=== PATIENT | female | born 1995 | race African-American/Black ===

== ENCOUNTER 2021-11-23 03:05 | Observation (INO) | payer MEDICAID, OTHER ==
[~2021-11-23] VITALS: Ht 167.6 cm; Wt 52.6 kg
[2021-11-23] MEDS ORDERED: PRENATAL VITAMINS (03:46)
[2021-11-23] MEDS ORDERED: INSULIN (03:46)
[2021-11-23] MEDS ORDERED: ONDANSETRON HCL 4MG/2ML INJ IV PRN (06:30)
[2021-11-23] MEDS ORDERED: ACETAMINOPHEN 325MG TABLET PO PRN (06:30)
[2021-11-23] MEDS ORDERED: BLOOD SUGAR DIAGNOSTIC STRIP TEST ONE (06:30)
[2021-11-23 06:59] LABS: CLARITY URINE CLEAR (CLEAR); COLOR URINE YELLOW (YELLOW); KETONES URINE 2+ (NEGATIVE); LEUKOCYTE ESTERASE URINE NEGATIVE (NEGATIVE); NITRITE URINE NEGATIVE (NEGATIVE); OCCULT BLOOD URINE NEGATIVE (NEGATIVE); PH URINE 6.5 (4.5-8.0); PROTEIN URINE NEGATIVE (NEGATIVE); UROBILINOGEN URINE 0.2 E.U./dL (0.2-1.0)
== END 2021-11-23 07:30 | disposition home or self-care (01) ==
LOC: 8 EST LDRP 03:05
PROVIDERS: ADMIT Obstetrics & Gynecology; ATTEND Obstetrics & Gynecology
DX: O60.02 Preterm labor without delivery, second trimester (principal); O26.892 Other specified pregnancy related conditions, second trimester; R10.9 Unspecified abdominal pain; O62.9 Abnormality of forces of labor, unspecified; O24.112 Pre-existing type 2 diabetes mellitus, in pregnancy, second trimester; E11.9 Type 2 diabetes mellitus without complications; Z79.4 Long term (current) use of insulin; Z3A.26 26 weeks gestation of pregnancy; Z98.891 History of uterine scar from previous surgery
CPT/HCPCS: 59025; 76805; 81003; 82731; 82962; G0378; 99281

== ENCOUNTER 2022-01-16 12:10 | Observation (INO) | payer OTHER ==
[~2022-01-16] VITALS: Ht 162.6 cm; Wt 56.7 kg
[2022-01-16] MEDS ORDERED: SODIUM CHLORIDE 0.9% 1,000 ML IV SCH (14:15)
[2022-01-16] MEDS ORDERED: TERBUTALINE SULFATE 1MG/ML VIAL SUBCUT PRN (14:19)
== END 2022-01-16 13:10 | disposition home or self-care (01) ==
LOC: 8 EST LDRP 12:10
PROVIDERS: ADMIT Specialist; ATTEND Specialist
DX: O62.9 Abnormality of forces of labor, unspecified (principal); O26.893 Other specified pregnancy related conditions, third trimester; N89.8 Other specified noninflammatory disorders of vagina; Z3A.34 34 weeks gestation of pregnancy; Z98.891 History of uterine scar from previous surgery
CPT/HCPCS: 59025; 99281; G0378; J7030

== ENCOUNTER 2023-09-02 09:17 | Emergency (ER) | payer MEDICAID ==
[~2023-09-02] VITALS: Ht 160 cm; Wt 58.0 kg
[2023-09-02 09:32] VITALS: BP 124/56; PULSE 80; RESP 18; TEMP 98.2; O2SAT 100
[2023-09-02 11:40] LABS: BASOPHILS % 0.6 % (0.0-2.0); EOSINOPHILS % 0.6 % (0.0-5.0); HEMOGLOBIN. 13.4 g/dL (12.0-16.0); LYMPHOCYTES % 25.8 % (20.0-50.0); MEAN CORPUSCULAR HEMOGLOBIN 29.5 pg (28.0-32.0); MEAN CORPUSCULAR HGB CONC 33.4 g/dL (31.0-37.0); MEAN CORPUSCULAR VOLUME 88.4 fL (81.0-99.0); MEAN PLATELET VOLUME 7.6 fl (7.4-10.4); MONOCYTES % 8.8 % (2.0-8.0); NEUTROPHILS % 64.2 % (40.0-76.0); PLATELET 285 x1000/uL (130-400); RED BLOOD CELL COUNT 4.53 mill/uL (4.2-5.4); WHITE BLOOD COUNT 6.5 x1000/uL (4.5-11.0)
[2023-09-02 11:45] LABS: CHLORIDE 102 mEq/L (98-107); POTASSIUM 4.1 mEq/L (3.5-5.1); SODIUM 134 mEq/L (136-145)
[2023-09-02 11:46] LABS: CALCIUM 9.4 mg/dL (8.7-10.4); CARBON DIOXIDE 25 mEq/L (21-32)
[2023-09-02 11:51] LABS: UREA NITROGEN BLOOD 8 mg/dL (9-23)
[2023-09-02 12:16] LABS: GLUCOSE 459 mg/dL (70-105)
[2023-09-02 12:47] LABS: CLARITY URINE CLEAR (CLEAR); COLOR URINE YELLOW (YELLOW); GLUCOSE URINE 3+ (NEGATIVE); KETONES URINE 1+ (NEGATIVE); LEUKOCYTE ESTERASE URINE NEGATIVE (NEGATIVE); NITRITE URINE NEGATIVE (NEGATIVE); OCCULT BLOOD URINE NEGATIVE (NEGATIVE); PH URINE 6.5 (4.5-8.0); PROTEIN URINE NEGATIVE (NEGATIVE); SPECIFIC GRAVITY URINE 1.037 (1.005-1.030)
[2023-09-02 13:05] LABS: SQUAMOUS EPITHELIAL CELL URINE 2+ /lpf (RARE/1+)
[2023-09-02 13:06] LABS: BACTERIA URINE 3+; RBC URINE NONE SEEN /hpf (0-2)
[2023-09-02] MEDS: INSULIN REGULAR (HUMULIN R) 300UNITS/3ML VIAL SUBCUT ONE (13:47)
[2023-09-02] MEDS ORDERED: INSU100I28 SQ (15:03)
== END 2023-09-02 15:11 | disposition home or self-care (01) ==
LOC: ER 09:27
DX: E11.65 Type 2 diabetes mellitus with hyperglycemia (principal); Z76.0 Encounter for issue of repeat prescription
CPT/HCPCS: 99283; 80048; 81003; 82962; 85025; 36415; 96372; J1815